=== PATIENT | female | born 1960 | race Caucasian/White ===

== ENCOUNTER 2016-08-09 19:29 | Emergency (ER) | payer OTHER ==
[~2016-08-09] VITALS: Ht 167.6 cm; Wt 100.0 kg
[2016-08-09 19:44] VITALS: BP 159/98; PULSE 90; RESP 16; O2SAT 96
[2016-08-09 20:18] LABS: BASOPHILS % (AUTO) 0.2 % (0-3); EOSINOPHILS % (AUTO) 1.9 % (0-5); Mean Corpuscular Hemoglobin 29.6 pg (27.0-35.0); Platelet Count 175 bil/L (150-400)
--- NOTE | 2016-08-09 21:27 | ED.REPORT ---
HPI-General Illness Date of Service Aug 09, 2016 ED Provider: Willi Quiroz MD A 55 year old female with a history of renal failure presents to the ED from Urgent Care with bilateral leg swelling onset yesterday. The patient also reports lower back pain after a lifting injury one week ago. She denies any history of heart or liver conditions. Nursing Notes Stated Complaint: STOMACH PAIN-SENT BY Chief Complaint: Female Abdominal Pain Nursing Notes Reviewed: Yes Allergies: Coded Allergies: Contrast Media (Verified Allergy, Severe, Anaphylaxis, 08/09/16) alcohol (Verified Allergy, Severe, isaac the skin, 08/09/16) topical ibuprofen (Verified Allergy, Severe, gi upset, 08/09/16) Scheduled Amlodipine (Amlodipine) 5 Mg Tablet 5 MG PO DAILY Calcitriol (Rocaltrol) 0.25 Mcg Capsule 0.5 MCG PO DAILY Carbamazepine (Carbamazepine ER) 100 Mg Tab.er.12h 300 MG PO BID Carvedilol (Carvedilol) 6.25 Mg Tablet 6.25 MG PO BID Doxepin (Doxepin) 25 Mg Capsule 50 MG PO HS Estrogens Conjugated (Premarin) 1 Gm Vagcream 0.5 GM VG twice weekly Fluocinonide 0.05% Oint (Fluocinonide 0.05% Oint) 15 Gm Oint...g. 1 APPLIC TOPICAL DAILY Magnesium Gluconate (Magnesium Gluconate) 30 Mg Tablet 30 MG PO DAILY Scheduled PRN Alprazolam (Alprazolam) 1 Mg Tablet 1 MG PO HS PRN PRN Insomnia Dihydroergotamine Mesylate (Dihydroergotamine Mesylate) 1 Ml Stanley.pump 0.5 MG NS q15min PRN PRN For Headache 1 spray into each nostril. May repeat in 15 min for total of 4 sprays (2 mg) . Max = 6 sprays (3 mg) in 24 hrs and 8 sprays (4 mg) in a week. Methadone (Methadone) 5 Mg/5 Ml Solution 20-30 MG PO TID PRN PRN For Pain NTE 7 TABS/DAY Oxycodone (Roxicodone) 15 Mg Tablet 15 MG PO Q4H PRN PRN For Pain Promethazine Supp (Promethazine Supp) 25 Mg Supp 25 MG RECTAL Q6H PRN PRN For Nausea Temazepam (Temazepam) 30 Mg Cap 30 MG PO HS PRN PRN Insomnia hydrOXYzine Hcl (HydrOXYzine Hcl) 25 Mg Tablet 25 MG PO QID PRN PRN For Itching General Time Seen by MD: 21:26 Chief Complaint Other (Bilateral Leg Swelling) Hx Obtained From: Patient Arrived By: Walk-in Sudden in Onset?: Yes Onset Occurred: Yesterday Symptom Duration: Since onset Location: : Back Quality: Painful Severity: Current: Moderate Severity: Maximum: Moderate Associated with: Denies: Fever Pertinent Negative: Relieved by nothing Recent Healthcare: Recent doctor visit Past Medical History Past Medical History Renal Failure Past Surgical History None reported Smoking History Unknown if Ever Smoker Social History Other Social History: Good social support, , From out of town ( [place]) Ambulatory Status Independent Review of Systems Full Review of Systems Constitutional: Denies: Fever Respiratory: Denies: Non-productive cough, Shortness of breath GI: Denies: Diarrhea, Vomiting Musculoskeletal: Reports: Back pain (Lower), Extremity swelling (Bilateral legs ) Complete sys rev & neg: except as marked. Physical Exam Vital Signs Vital Signs Date Time Temp Pulse Resp B/P Pulse Ox O2 Delivery O2 Flow Rate FiO2 08/09/16 21:58 36.1 89 16 178/108 96 Room Air 08/09/16 21:58 89 16 178/108 96 Room Air 08/09/16 19:44 36.1 90 16 159/98 96 Room Air Initial VS: Reviewed Head / Eyes: Atraumatic, Normocephalic ENT: Conjunctiva normal, No scleral icterus Neck: Supple, Full range of motion Respiratory: Breath sounds normal, Clear to auscultation, No respiratory distress Cardiovascular: Regular rate & rhythm, Heart sounds normal Skin: Warm, Dry, No cyanosis Neurologic: Alert, Oriented, Nonfocal Psychiatric: Mood/affect normal, Behavior normal, Normal thought content General/Constitutional: Awake, Alert, No acute distress Abdomen: Soft Tenderness/Guarding/Rebound: Positive: Tender diffuse (Baseline per patient) Lower Extremity / Pelvis / MS: Non-tender, No deformity 2+ edema bilaterally, presents in edema stockings No cords or inguinal adenopathy Interpretation & Diagnostics Lab Results Interpretation Result Diagram: 08/09/16200408/09/162004 Test 08/09/16 20:05 08/09/16 21:27 White Blood Count 5.2th/mm3 (3.8-10.1) Red Blood Count 4.59mil/mm3 (3.90-5.20) Hemoglobin 13.6g/dL (12.0-15.6) Hematocrit 41.3% (35.0-46.0) Mean Corpuscular Volume 90.0fL (81-100) Mean Corpuscular Hemoglobin 29.6pg (27.0-35.0) Mean Corpuscular Hemoglobin Concent 32.9% (32.0-37.0) Red Cell Distribution Width 13.3% (12.3-15.4) Platelet Count 175bil/L (150-400) Neutrophils (%) (Auto) 67.0% (40-74) Lymphocytes (%) (Auto) 19.7% (14-46) Monocytes (%) (Auto) 11.0% (4-12) Eosinophils (%) (Auto) 1.9% (0-5) Basophils (%) (Auto) 0.2% (0-3) Sodium Level 140mEq/L (134-144) Potassium Level 3.6mEq/L (3.5-5.2) Chloride Level 96mEq/L (97-108) Carbon Dioxide Level 29mmol/L (18-29) Blood Urea Nitrogen 17mg/dL (6-24) Creatinine 1.56mg/dL (0.57-1.00) Estimat Glomerular Filtration Rate 50mL/min (>59) Glucose Level 101mg/dL (60-99) Calcium Level 9.3mg/dL (8.5-10.1) Total Bilirubin 0.3mg/dL (0.0-1.2) Aspartate Amino Transf (AST/SGOT) 21U/L (0-50) Alanine Aminotransferase (ALT/SGPT) 19U/L (0-32) Alkaline Phosphatase 110U/L (25-150) Total Protein 7.5g/dL (6.4-8.4) Albumin 4.4g/dL (3.4-5.0) Hold Talavera Top Tube Received (Received) Hold Urine Received (Received) Re-Eval/Medical Decision Med Decision/Clinical Course 55-year-old with prior acute kidney injury presents with some leg edema, and was concerned that she was having renal failure again. Her kidney function is not normal but is better than it had been and she is quite relieved to hear that. No other immediate causes are obvious. She has chronic back pain and is fairly debilitated by that. She has had no further episodes renal failure known. No nephrotic range proteinuria found. No history of cardiac issues or congestive heart failure. She is referred back to her primary care physician for follow-up. Time of Eval: 21:30 Patient Status: Condition improved Re-Evaluation/Progress Note: Discussed with patient lab results, diagnosis, and plan for discharge. Follow-up and return to the ER instructions given. Patient agrees with plan for care and all questions were addressed. Counseled Regarding: Diagnosis, Lab results, Need for follow-up, When/why to return to ED Discharge & Departure Shift Change Sign-Out Response to Therapy: Unchanged Primary Impression: Leg edema Laterality: bilateral Qualified Code: R60.0 - Localized edema Disposition: Home Discharge Condition All VS Reviewed: Yes Condition: Improved Patient Instructions: Leg Edema (ED) Additional Instructions: Elevate your legs above the heart whenever possible to reduce the edema. Follow- up with your physician. If you need to establish locally, you may use the [facility]. See the referral information below. Continue your current medications. Referrals: Tucker Eli MD (PCP) Melecio Waters MD Attestation Portions of this note were transcribed by Adele Pineda. I, Dr. Quiroz, personally performed the history, physical exam, and medical decision-making; I reviewed and confirmed the accuracy of the information in the transcribed note. Signed by: Crystal La, 08/10/2016, 03:10 copies to: Tucker Eli MD; Melecio Waters MD, Christopher W MD Aug 09, 2016 21:27 ADELE PINEDA Aug 09, 2016 21:45
[2016-08-09 21:58] VITALS: BP 178/108; PULSE 89; RESP 16; O2SAT 96
[2016-08-09] MEDS ORDERED: METH5SOL PO (22:16)
[2016-08-09] MEDS ORDERED: ALPR1TAB7 PO (22:16)
[2016-08-09] MEDS ORDERED: CARB100T47 PO (22:17)
[2016-08-09] MEDS ORDERED: DXPN25C PO (22:17)
[2016-08-09] MEDS ORDERED: PREC VG (22:19)
[2016-08-09] MEDS ORDERED: DIHY1SPR3 NS (22:21)
[2016-08-09] MEDS ORDERED: AMLO5TAB2 PO (22:22)
[2016-08-09] MEDS ORDERED: MAGN30TA2 PO (22:23)
[2016-08-09] MEDS ORDERED: CARV6.252 PO (22:24)
[2016-08-09] MEDS ORDERED: CALC0.257 PO (22:24)
[2016-08-09] MEDS ORDERED: FLUO15OI TOPICAL (22:25)
[2016-08-09] MEDS ORDERED: HYDR-656 PO (22:25)
[2016-08-09] MEDS ORDERED: RES30 PO (22:26)
[2016-08-09] MEDS ORDERED: PROM25SU47 RECTAL (22:27)
[2016-08-09] MEDS ORDERED: OXYC15TA45 PO (22:28)
== END 2016-08-09 22:00 | disposition home or self-care (01) ==
LOC: SED 19:29
DX: R60.0 Localized edema (principal); M54.5 Low back pain; Z87.448 Personal history of other diseases of urinary system; Z91.041 Radiographic dye allergy status; Z88.8 Allergy status to other drugs, medicaments and biological substances